=== PATIENT | female | born 1935 | race Caucasian/White ===

== ENCOUNTER 2016-11-03 10:28 | Inpatient (IN) | payer MEDICARE, BC ==
[2016-11-03] MEDS ORDERED: Sodium Chloride 0.9% 10 ML Syringe FLUSH PRN (10:55)
[2016-11-03] MEDS ORDERED: methylPREDNISolone Sodium Succinate 125 MG/2 ML SDV IVPUSH ONE (10:58)
[2016-11-03] MEDS ORDERED: Albuterol/Ipratropium 3.0-0.5 MG/3 ML Neb Soln NEB ONE ×2 (10:58→13:01)
--- NOTE | 2016-11-03 14:23 | EDM.PDOC ---
ED HPI GENERAL MEDICAL PROBLEM - General Chief Complaint: Respiratory Problem Stated Complaint: SOB Time Seen by Provider: 11/03/16 10:46 Source of Information: Reports: Patient History Limitations: Reports: No Limitations - History of Present Illness INITIAL COMMENTS - FREE TEXT/NARRATIVE: The patient presents with increased shortness of breath for a few days. 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 She denies fever, chills, or cough. She say her provider yesterday and she found her CO2 was elevated. She denies chest pain. She has no abdominal pain, nausea or vomiting. She has no edema in her legs. Onset: Gradual Duration: Day(s): Improves with: Reports: None Worsens with: Reports: Movement Associated Symptoms: Reports: Shortness of Breath. Denies: Chest Pain, Cough, Fever/Chills, Nausea/Vomiting - Related Data Allergies Allergy/AdvReac Type Severity Reaction Status Date / Time erythromycin base Allergy Other Verified 11/03/16 10:39 Home Meds: Home Meds Atenolol 50 mg PO DAILY 06/12/15 [History] Calcium Carbonate/Vitamin D3 [Caltrate-600 with Vit D Tab] 500 mg PO ASDIRECTED PRN 06/12/15 [History] Cholecalciferol (Vitamin D3) [Vitamin D3] 2,000 unit PO DAILY 06/12/15 [History] Denosumab [Prolia] 60 mg .XX ASDIRECTED 06/12/15 [History] Ezetimibe [Zetia] 10 mg PO BEDTIME 06/12/15 [History] Multivitamin [Multivitamins] 1 each PO DAILY 06/12/15 [History] Polyvinyl Alcohol/Povidone [Refresh] 1 drop EYEBOTH DAILY 06/12/15 [History] Ubidecarenone [Coenzyme Q10] 100 mg PO DAILY 06/12/15 [History] metroNIDAZOLE [Metronidazole] 45 gm TP DAILY 06/12/15 [History] Albuterol [IJD: Ventolin HFA] 2 puff INH Q4HR PRN 12/12/15 [History] Fluticasone Propionate [Flonase] 2 spray NASBOTH DAILY 12/12/15 [History] Furosemide [Lasix] 20 mg PO DAILY 12/12/15 [History] Omeprazole 20 mg PO DAILY 11/03/16 [History] Past Medical History Cardiovascular History: Reports: CAD, Heart Failure, Hypertension Respiratory History: Reports: Asthma, SOB Other Respiratory History: Wears oxygen at home at 3l/nc at all times Gastrointestinal History: Reports: GERD Musculoskeletal History: Reports: Other (See Below) Other Musculoskeletal History: scoliosis - Past Surgical History HEENT Surgical History: Reports: Tonsillectomy Social & Family History - Tobacco Use Smoking Status *Q: Never Smoker Second Hand Smoke Exposure: No - Caffeine Use Caffeine Use: Reports: None - Recreational Drug Use Recreational Drug Use: No ED ROS GENERAL - Review of Systems Review Of Systems: See Below Constitutional: Reports: No Symptoms HEENT: Reports: No Symptoms Respiratory: Reports: Shortness of Breath. Denies: Cough Cardiovascular: Reports: No Symptoms Endocrine: Reports: No Symptoms GI/Abdominal: Reports: No Symptoms : Reports: No Symptoms Musculoskeletal: Reports: No Symptoms Skin: Reports: No Symptoms ED EXAM, GENERAL - Physical Exam Exam: See Below Exam Limited By: No Limitations General Appearance: Alert, No Apparent Distress Ears: Normal External Exam Nose: Normal Inspection Head: Atraumatic, Normocephalic Neck: Normal Inspection Respiratory/Chest: No Respiratory Distress, Decreased Breath Sounds Cardiovascular: Regular Rate, Rhythm, No Edema, No Murmur GI/Abdominal: Soft, Non-Tender, No Organomegaly, No Mass Back Exam: Normal Inspection Extremities: Normal Inspection EKG INTERPRETATION EKG Date: 11/03/16 Time: 11:18 Rhythm: NSR Rate (beats/min): 77 [place]: normal P-wave: present QRS: normal ST-T: normal QT: normal EKG Interpretation Comments: LVH Course - Vital Signs Last Recorded V/S: Last Vital Signs Temp 97.4 F 11/03/16 10:33 Pulse 80 11/03/16 10:45 Resp 27 H 11/03/16 10:45 BP 157/88 H 11/03/16 10:45 Pulse Ox 98 11/03/16 13:09 - Orders/Labs/Meds Orders: Active Orders 24 hr Category Date Time Status Cardiac Monitoring [RC] . DIRECTED Care 11/03/16 10:55 Active EKG Documentation Completion [RC] STAT Care 11/03/16 10:57 Active Oxygen Therapy [RC] PRN Care 11/03/16 10:55 Active Peripheral IV Care [RC] . DIRECTED Care 11/03/16 10:58 Active RT Aerosol Therapy [RC] ASDIRECTED Care 11/03/16 10:58 Active RT Aerosol Therapy [RC] ASDIRECTED Care 11/03/16 13:01 Active Chest 1V Frontal [CR] Stat Exams 11/03/16 10:58 Taken Sodium Chloride 0.9% [Saline Flush] Med 11/03/16 10:55 Active 10 ml FLUSH ASDIRECTED PRN Peripheral IV Insertion Adult [OM.PC] Stat Oth 11/03/16 10:55 Ordered Medication Orders Sodium Chloride (Saline Flush) 10 ml FLUSH ASDIRECTED PRN PRN Reason: Keep Vein Open Last Admin: 11/03/16 11:45 Dose: 10 ml Labs: Laboratory Tests 11/03/16 11/03/16 11/03/16 Range/Units 11:30 11:30 11:30 WBC 7.20 (3.98-10.04) K/mm3 RBC 3.93 L (3.98-5.22) M/mm3 Hgb 11.9 (11.2-15.7) gm/L Hct 40.6 (34.1-44.9) % MCV 103.3 H (79.4-94.8) fl MCH 30.3 (25.6-32.2) pg MCHC 29.3 L (32.2-35.5) g/dl RDW Std Deviation 48.1 H (36.4-46.3) fL Plt Count 144 L (182-369) K/mm3 MPV 10.2 (9.4-12.3) fl Neut % (Auto) 81.4 H (34.0-71.1) % Lymph % (Auto) 9.0 L (19.3-51.7) % [place] % (Auto) 8.9 (4.7-12.5) % Eos % (Auto) 0.3 L (0.7-5.8) Baso % (Auto) 0.3 (0.1-1.2) % Neut # (Auto) 5.86 (1.56-6.13) K/mm3 Lymph # (Auto) 0.65 L (1.18-3.74) K/mm3 [place] # (Auto) 0.64 H (0.24-0.36) K/mm3 Eos # (Auto) 0.02 L (0.04-0.36) K/mm3 Baso # (Auto) 0.02 (0.01-0.08) K/mm3 Manual Slide Review Abnormal smear Sodium 142 (136-145) mEq/L Potassium 4.3 (3.5-5.1) mEq/L Chloride 99 (98-107) mEq/L Carbon Dioxide 42 H* (21-32) mEq/L Anion Gap 5.3 (5-15) BUN 30 H (7-18) mg/dL Creatinine 0.8 (0.55-1.02) mg/dL Est Cr Clr Drug Dosing 40.96 mL/min Estimated GFR (MDRD) > 60 (>60) mL/min BUN/Creatinine Ratio 37.5 H (14-18) Glucose 141 H (83-115) mg/dL Calcium 9.2 (8.5-10.1) mg/dL Total Bilirubin 0.3 (0.2-1.0) mg/dL AST 27 (15-37) U/L ALT 35 (14-59) U/L Alkaline Phosphatase 83 (46-116) U/L Troponin I < 0.017 (0.00-0.056) ng/mL B-Natriuretic Peptide 105 H (0-100) pg/mL Total Protein 7.0 (6.4-8.2) g/dl Albumin 3.4 (3.4-5.0) g/dl Globulin 3.6 gm/dL Albumin/Globulin Ratio 0.9 L (1-2) Meds: Medications Generic Name Dose Route Start Last Admin Trade Name Freq PRN Reason Stop Dose Admin Sodium Chloride 10 ml 11/03/16 10:55 11/03/16 11:45 Saline Flush FLUSH 10 ml ASDIRECTED PRN Administration Keep Vein Open Discontinued Medications Generic Name Dose Route Start Last Admin Trade Name Freq PRN Reason Stop Dose Admin Albuterol/Ipratropium 3 ml 11/03/16 10:58 11/03/16 11:25 Duoneb 3.0-0.5 Mg/3 Ml NEB 11/03/16 10:59 3 ml ONETIME ONE Administration Albuterol/Ipratropium 3 ml 11/03/16 13:01 11/03/16 13:08 Duoneb 3.0-0.5 Mg/3 Ml NEB 11/03/16 13:02 3 ml ONETIME ONE Administration Methylprednisolone Sodium Succinate 125 mg 11/03/16 10:58 11/03/16 11:45 Solu-Medrol IVPUSH 11/03/16 10:59 125 mg ONETIME ONE Administration - Re-Assessments/Exams Free Text/Narrative Re-Assessment/Exam: 11/03/16 14:21 I ordered oxygen, CXR, EKG, labs, Duoneb and solu-medrol. Her EKG shows nothing acute. Her CXR shows poor inspiration. Her CBC looks good. Her CO2 was elevated at 42. I ordered another duo neb. I feel she needs to be admitted. I called Dr Godfrey and he agreed to the admission. Departure - Departure Time of Disposition: 14:25 Disposition: Admitted As Inpatient 68 Condition: fair Clinical Impression: COPD exacerbation - Discharge Information Forms: ED Department Discharge - My Orders Last 24 Hours: My Active Orders 11/03/16 10:55 Cardiac Monitoring [RC] . DIRECTED Oxygen Therapy [RC] PRN Sodium Chloride 0.9% [Saline Flush] 10 ml FLUSH ASDIRECTED PRN Peripheral IV Insertion Adult [OM.PC] Stat 11/03/16 10:57 EKG Documentation Completion [RC] STAT 11/03/16 10:58 Peripheral IV Care [RC] . DIRECTED RT Aerosol Therapy [RC] ASDIRECTED Chest 1V Frontal [CR] Stat 11/03/16 13:01 RT Aerosol Therapy [RC] ASDIRECTED - Assessment/Plan Last 24 Hours: My Active Orders 11/03/16 10:55 Cardiac Monitoring [RC] . DIRECTED Oxygen Therapy [RC] PRN Sodium Chloride 0.9% [Saline Flush] 10 ml FLUSH ASDIRECTED PRN Peripheral IV Insertion Adult [OM.PC] Stat 11/03/16 10:57 EKG Documentation Completion [RC] STAT 11/03/16 10:58 Peripheral IV Care [RC] . DIRECTED RT Aerosol Therapy [RC] ASDIRECTED Chest 1V Frontal [CR] Stat 11/03/16 13:01 RT Aerosol Therapy [RC] ASDIRECTED
--- NOTE | 2016-11-03 15:08 | PCM.HP ---
H&P History of Present Illness - General Date of Service: 11/03/16 Admit Problem/Dx: COPD Exacerbation Source of Information: Patient, Old Records, Provider, RN Notes Reviewed History Limitations: Reports: No Limitations - History of Present Illness Initial Comments - Free Text/Narative: This is a 81 yo elderly white female with past medical hx/o HTN, CAD, ISHMAEL on CPAP, Rosacea, GERD and Severe Scoliosis who comes in with complaints of increasing shortness of breath for the past few days. She denies any associated symptoms. Patient carries a hx/o COPD and Restrictive Lung Disease. She used to follow Dr. Brandon but has not found a new rec therapist. She is on ventolin for symptomatic control. She is also on 3L NC continuously at home. Her initial work up in ED shows a CBC remarkable for RBC 3.93, Platelet 144, and Neutrophils 81.4%. Her chemistry is significant for CO2 42, BUN 30, BS 141, and BNP 105. Her CXR shows very restricted with poor inspiratory effort. Patient is being admitted for COPD Exacerbation. She is CPR only. - Related Data Allergies/Adverse Reactions: Allergies Allergy/AdvReac Type Severity Reaction Status Date / Time erythromycin base Allergy Other Verified 11/03/16 10:39 Home Medications: Home Meds Atenolol 50 mg PO BEDTIME 06/12/15 [History] Cholecalciferol (Vitamin D3) [Vitamin D3] 2,000 unit PO DAILY 06/12/15 [History] Denosumab [Prolia] 60 mg .XX ASDIRECTED 06/12/15 [History] Ezetimibe [Zetia] 10 mg PO BEDTIME 06/12/15 [History] Multivitamin [Multivitamins] 1 each PO DAILY 06/12/15 [History] Polyvinyl Alcohol/Povidone [Refresh] 1 drop EYEBOTH BID 06/12/15 [History] Ubidecarenone [Coenzyme Q10] 100 mg PO DAILY 06/12/15 [History] Albuterol [IJD: Ventolin HFA] 2 puff INH Q4HR PRN 12/12/15 [History] Fluticasone Propionate [Flonase] 2 spray NASBOTH DAILY 12/12/15 [History] Furosemide [Lasix] 20 mg PO DAILY 12/12/15 [History] Bacillus Coagulans [Digestive Advantage] 1 tab PO DAILY 11/03/16 [History] Lactase [Lactaid] 1 tab PO QID PRN 11/03/16 [History] Omeprazole 20 mg PO BIDAC 11/03/16 [History] Past Medical History Cardiovascular History: Reports: CAD, Heart Failure, Hypertension Respiratory History: Reports: Asthma, SOB Other Respiratory History: Wears oxygen at home at 3l/nc at all times Gastrointestinal History: Reports: GERD Musculoskeletal History: Reports: Other (See Below) Other Musculoskeletal History: scoliosis - Past Surgical History HEENT Surgical History: Reports: Tonsillectomy Social & Family History - Tobacco Use Smoking Status *Q: Never Smoker Second Hand Smoke Exposure: No - Caffeine Use Caffeine Use: Reports: None - Recreational Drug Use Recreational Drug Use: No H&P Review of Systems - Review of Systems: Review Of Systems: See Below General: Reports: Fatigue. Denies: Fever, Chills, Malaise, Weakness, Night Sweats, Diaphoresis HEENT: Reports: No Symptoms Pulmonary: Reports: Shortness of Breath. Denies: Wheezing, Pleuritic Chest Pain , Cough, Sputum Cardiovascular: Denies: Chest Pain, Palpitations, Dyspnea on Exertion Gastrointestinal: Denies: Abdominal Pain, Melena, Nausea Genitourinary: Reports: No Symptoms Musculoskeletal: Reports: No Symptoms Skin: Reports: Cyanosis (hands), Change in Color. Denies: Pallor, Dryness, Bruising, Rash, Erythema, Wound Psychiatric: Denies: Confusion, Depression, Anxiety, Agitation, Homicidal Ideation Neurological: Reports: Gait Disturbance. Denies: Confusion, Weakness Hematologic/Lymphatic: Reports: No Symptoms Immunologic: Reports: No Symptoms Exam - Exam Exam: See Below - Vital Signs Vital Signs: Last Vital Signs Temp 36.3 C 11/03/16 10:33 Pulse 80 11/03/16 10:45 Resp 27 H 11/03/16 10:45 BP 157/88 H 11/03/16 10:45 Pulse Ox 98 11/03/16 13:09 Weight: 58.967 kg - Exam Quality Assessment: Supplemental Oxygen General: Alert, Oriented, Cooperative, Other (short stature). No: Mild Distress HEENT: Conjunctiva Clear, EACs Clear, EOMI, Hearing Intact, Mucosa Moist & [place] , Nares Patent, Normal Nasal Septum, Posterior Pharynx Clear, Pupils Equal, Pupils Reactive Neck: Supple, Trachea Midline (she has no visible neck), Other (no visible neck , no accessory muscle use) Lungs: Normal Respiratory Effort, Decreased Breath Sounds Cardiovascular: Regular Rate, Regular Rhythm Abdomen: Normal Bowel Sounds, Soft. No: Organomegaly, Tenderness (Female) Exam: Deferred Rectal (Female) Exam: Deferred Back Exam: Other (Severe Scoliosis, Right shoulder is higher than Left). No: Normal Inspection, Full Range of Motion Extremities: Normal Pulses, Edema (left ankle), Other (hands a [place]obhan cyanotic and cold (normal to her per patient)) Peripheral Pulses: 2+: Dorsalis Pedis (L), Dorsalis Pedis (R) Skin: Warm, Dry, Intact Neuro Extensive - Mental Status: Oriented x3, Normal Cognition, Memory Intact Neuro Extensive - Motor, Sensory, Reflexes: CN II-XII Intact, Abnormal Gait Psychiatric: Alert, Normal Affect, Normal Mood - Patient Data Result Diagrams: 11/03/16 11:30 11/03/16 11:30 EKG INTERPRETATION EKG Date: 11/03/16 Time: 11:18 Rhythm: NSR Rate (beats/min): 77 [place]: normal P-wave: present QRS: normal ST-T: normal QT: normal *Q Meaningful Use (ADM) - VTE *Q VTE Criteria *Q: - Stroke *Q Stroke Criteria *Q: - AMI *Q AMI Criteria *Q: Problem List Initiated/Reviewed/Updated: Yes Orders Last 24hrs: Medication Orders Sodium Chloride (Saline Flush) 10 ml FLUSH ASDIRECTED PRN PRN Reason: Keep Vein Open Last Admin: 11/03/16 11:45 Dose: 10 ml Assessment/Plan Comment:: Assessment/Plan: Acute: Acute on Chronic Respiratory Failure - Risk Factors: Restrictive Lung Disease, COPD, Advanced Scoliosis and ISHMAEL - On 3L NC continuously for home use - Continue Supplemental O2 COPD Exacerbation - 2/2 Restrictive Lung Disease from Severe and likely Worsening Scoliosis - Supplemental O2, IV Solumedrol, Bronchodilators, RT care, oral Magnesium BID Acute vs Chronic CO2 Retainer - 2/2 above - Continue supplemental O2 - Has NIPPV, may convert to BIPAP if needed - Monitor CO2 level Severe Scoliosis - Likely worsening - She was seen in [facility] before but was not offered any kind of intervention likely because of her advanced age and co-morbidities - Informed patient, she may need to be re-evaluated with declining functional status Chronic: HTN ISHMAEL on CPAP COPD/Asthma GERD Peripheral Edema Vit D Deficiency Osteoporosis Hx/o CAD/HLD Hx/o HF with unknown EF (likely Diastolic) Hx/o Tachycardia Plan: Admit to Med-Surg w/ Pulse ox Resume Home Meds except albuterol Routine AM Labs Start Xopenex instead of Albuterol PT/OT/RT consult SW/CM for d/c planning Code status: CPR only
[2016-11-03] MEDS ORDERED: Promethazine 12.5 MG in Sodium Chloride 0.9% 50 ML IV PRN (16:35)
[2016-11-03] MEDS ORDERED: Polyethylene Glycol 3350 Powder 17 GM Packet PO PRN (16:35)
[2016-11-03] MEDS ORDERED: Bisacodyl 5 MG Tab PO PRN (16:35)
[2016-11-03] MEDS ORDERED: Ondansetron 4 MG/2 ML SDV IV PRN (16:35)
[2016-11-03] MEDS ORDERED: Temazepam 7.5 MG Cap PO PRN (16:35)
[2016-11-03] MEDS ORDERED: Acetaminophen 325 MG Tab PO PRN (16:35)
[2016-11-03] MEDS ORDERED: Acetaminophen/HYDROcodone 325-5 MG Tab PO PRN (16:35)
[2016-11-03] MEDS: Magnesium Oxide 400 MG Tab PO SCH (20:39)
[2016-11-03] MEDS: Hypromellose 0.5% Ophth Soln 15 ML Bottle EYEBOTH SCH (20:39)
[2016-11-03] MEDS: methylPREDNISolone Sodium Succinate 125 MG/2 ML SDV IVPUSH SCH (20:39)
[2016-11-03] MEDS: Ezetimibe 10 MG Tab PO SCH (20:39)
[2016-11-03] MEDS: Levalbuterol HCl 1.25 MG/3 ML Neb NEB PRN (20:48)
[2016-11-03] MEDS ORDERED: Atenolol 25 MG Tab PO SCH (21:00)
[2016-11-03] MEDS ORDERED: Furosemide 20 MG/2 ML VIAL IVPUSH ONE (21:08)
[2016-11-03] MEDS ORDERED: Morphine 2 MG/ML Syringe IVPUSH ONE (21:09)
[2016-11-03] MEDS: hydrALAZINE 20 MG/ML SDV IVPUSH PRN (21:47)
[2016-11-04] MEDS: Levalbuterol HCl 1.25 MG/3 ML Neb NEB PRN ×4 (02:14→21:34)
--- NOTE | 2016-11-04 05:08 | PCM.PN ---
- General Info Date of Service: 11/04/16 Admission Dx/Problem (Free Text): COPD Exacerbation Subjective Update: Follow Up Functional Status: Reports: pain controlled, tolerating diet, ambulating, urinating - Review of Systems General: Reports: Fatigue. Denies: Fever, Chills HEENT: Reports: no symptoms Pulmonary: Reports: shortness of breath Cardiovascular: Reports: Dyspnea on Exertion. Denies: Chest Pain, Palpitations , Edema Gastrointestinal: Denies: Abdominal pain, Nausea, Vomiting Genitourinary: Reports: no symptoms Musculoskeletal: Reports: no symptoms Neurological: Denies: Confusion, Difficulty Walking, Weakness, Gait Disturbance Psychiatric: Denies: depression, anxiety, agitation, cravings Systems Review Comment:: She did not sleep well overnight. She refused low dose ativan and morphine last night. Her breathing is about the same but no worse than her baseline. She remains at 3L NC. Her CO2 is now at 38 from 40. - Patient Data Vitals - most recent: Last Vital Signs Temp 37.1 C 11/03/16 23:10 Pulse 86 11/03/16 23:10 Resp 20 11/03/16 23:10 BP 127/64 11/03/16 23:10 Pulse Ox 95 11/03/16 23:10 Weight - most recent: 58.967 kg Med Orders - Current: Current Medications Acetaminophen (Tylenol) 650 mg PO Q4H PRN PRN Reason: Pain (Mild 1-3)/fever Hydrocodone Bitart/Acetaminophen ([place] 325-5 Mg) 1 tab PO Q4H PRN PRN Reason: Pain (moderate 4-6) Artificial Tears (Isopto Tears 0.5% Ophth Soln) 0 ml EYEBOTH BID [facility] Last Admin: 11/03/16 20:39 Dose: 1 drop Atenolol (Tenormin) 50 mg PO BEDTIME [facility] Last Admin: 11/03/16 20:39 Dose: 50 mg Bisacodyl (Dulcolax) 5 mg PO DAILY PRN PRN Reason: Constipation Cholecalciferol (Vitamin D3) 2,000 units PO DAILY [facility] Denosumab (Prolia) 60 mg .XX ASDIRECTED [facility] Ezetimibe (Zetia) 10 mg PO BEDTIME [facility] Last Admin: 11/03/16 20:39 Dose: 10 mg Enoxaparin Sodium (Lovenox) 30 mg SUBCUT DAILY [facility] Flunisolide (Nasalide Nasal [place]) 0 ml ESTEBAN Q12H [facility] Furosemide (Lasix) 20 mg PO DAILY [facility] Hydralazine HCl (Apresoline) 20 mg IVPUSH Q4H PRN PRN Reason: Hypertension Last Admin: 11/03/16 21:47 Dose: 20 mg Promethazine HCl 12.5 mg/ (Sodium Chloride) 50.5 mls @ 100 mls/hr IV Q6H PRN PRN Reason: Nausea/Vomiting Lactase (Lactaid Fast Act) 9,000 unit PO QID PRN PRN Reason: LACTOSE INTOLERANCE Levalbuterol HCl (Xopenex) 1.25 mg NEB Q4H PRN PRN Reason: SOB/WHEEZING Last Admin: 11/04/16 02:14 Dose: 1.25 mg Lorazepam (Ativan) 0.5 mg IV Q6H PRN PRN Reason: Anxiety Magnesium Oxide (Magnesium Oxide) 400 mg PO BID [facility] Last Admin: 11/03/16 20:39 Dose: 400 mg Methylprednisolone Sodium Succinate (Solu-Medrol) 125 mg IVPUSH Q12H [facility] Last Admin: 11/03/16 20:39 Dose: 125 mg Multivitamins (Thera) 1 each PO DAILY [facility] Non-Formulary Medication (Ubidecarenone) 100 mg PO DAILY [facility] Non-Formulary Medication (Bacillus Coagulans [Digestive Advantage]) 1 tab PO DAILY [facility] Ondansetron HCl (Zofran) 4 mg IV Q6H PRN PRN Reason: Nausea/Vomiting Pantoprazole Sodium (Protonix) 40 mg PO DAILY@0700 [facility] Polyethylene Glycol (Miralax) 17 gm PO DAILY PRN PRN Reason: Constipation Senna/Docusate Sodium (Senna Plus) 1 tab PO BID PRN PRN Reason: Constipation Sodium Chloride (Saline Flush) 10 ml FLUSH ASDIRECTED PRN PRN Reason: Keep Vein Open Last Admin: 11/03/16 11:45 Dose: 10 ml Temazepam (Restoril) 7.5 mg PO BEDTIME PRN PRN Reason: Sleep Discontinued Medications Albuterol/Ipratropium (Duoneb 3.0-0.5 Mg/3 Ml) 3 ml NEB ONETIME ONE Stop: 11/03/16 10:59 Last Admin: 11/03/16 11:25 Dose: 3 ml Albuterol/Ipratropium (Duoneb 3.0-0.5 Mg/3 Ml) 3 ml NEB ONETIME ONE Stop: 11/03/16 13:02 Last Admin: 11/03/16 13:08 Dose: 3 ml Furosemide (Lasix) 10 mg IVPUSH NOW ONE Stop: 11/03/16 21:09 Last Admin: 11/03/16 21:54 Dose: Not Given Methylprednisolone Sodium Succinate (Solu-Medrol) 125 mg IVPUSH ONETIME ONE Stop: 11/03/16 10:59 Last Admin: 11/03/16 11:45 Dose: 125 mg Morphine Sulfate (Morphine) 0.5 mg IVPUSH ONETIME ONE Stop: 11/03/16 21:10 Last Admin: 11/03/16 23:33 Dose: Not Given - Exam Quality Assessment: supplemental oxygen General: alert, oriented, cooperative, no acute distress, other (short stature) HEENT: Pupils equal, Pupils reactive, EOMI, Mucous membr. moist/pink Neck: supple, trachea midline, no JVD, no thyromegaly, other (neck is short and non-visible) Lungs: Clear to auscultation, Normal respiratory effort, Decreased breath sounds Cardiovascular: Regular Rate, Regular Rhythm, Other (prominent anterior chest ) Abdomen: bowel sounds present, soft, no tenderness, no distension (Female) Exam: Deferred Back Exam: Normal Inspection, Decreased Range of Motion, Other (Asymmetric shoulder. Her body is malrotated.) Extremities: normal pulses, no tenderness/swelling, no clubbing, no cyanosis, no calf tenderness, edema (left ankle but better), other (cyanotic hands) Peripheral Pulses: 2+: Dorsalis Pedis (L), Dorsalis Pedis (R) Skin: warm, dry, intact Neurological: no new focal deficit Psy/Mental Status: alert, normal affect, normal mood - Problem List Review Problem List Initiated/Reviewed/Updated: Yes - My Orders Last 24 Hours: My Active Orders 11/03/16 16:35 Height and Weight [RC] 04 Oxygen Therapy [RC] PRN Up With Assistance [RC] ASDIRECTED Up ad Fay [RC] ASDIRECTED VTE/DVT Education [RC] DAILY Vital Signs [RC] Q4HR Consult to Case Management [CONS] Routine Consult to Marketing Intern [CONS] Routine Consult to Spiritual Care [CONS] Routine Respiratory Care Assess and Treatment [CONS] Routine Acetaminophen [Tylenol] 650 mg PO Q4H PRN Acetaminophen/HYDROcodone [[place] 325-5 MG] 1 tab PO Q4H PRN Bisacodyl [Dulcolax] 5 mg PO DAILY PRN Docusate Sodium/Sennosides [Senna Plus] 1 tab PO BID PRN LORazepam [Ativan] 0.5 mg IV Q6H PRN Ondansetron [Zofran] 4 mg IV Q6H PRN Polyethylene Glycol 3350 [MiraLAX] 17 gm PO DAILY PRN Promethazine [Phenergan] 12.5 mg Sodium Chloride 0.9% [Normal Saline] 50 ml IV Q6H Temazepam [Restoril] 7.5 mg PO BEDTIME PRN Resuscitation Status Routine 11/03/16 16:36 Intake and Output [RC] 04,16 11/03/16 16:38 OT Evaluation and Treatment [CONS] Routine PT Evaluation and Treatment [CONS] Routine 11/03/16 16:45 Denosumab [Prolia] 60 mg .XX ASDIRECTED 11/03/16 17:09 Levalbuterol HCl [Xopenex] 1.25 mg NEB Q4H PRN 11/03/16 20:00 Lactase [Lactaid Fast Act] 9,000 unit PO QID PRN 11/03/16 21:00 Atenolol [Tenormin] 50 mg PO BEDTIME Ezetimibe [Zetia] 10 mg PO BEDTIME Hypromellose [Isopto Tears 0.5% Ophth Soln] 0 ml EYEBOTH BID Magnesium Oxide 400 mg PO BID methylPREDNISolone Sod Succ [Solu-MEDROL] 125 mg IVPUSH Q12H 11/03/16 21:06 hydrALAZINE [Apresoline] 20 mg IVPUSH Q4H PRN 11/03/16 Dinner Regular Diet [DIET] 11/04/16 05:11 BASIC METABOLIC PANEL,BMP [CHEM] AM CBC WITH AUTO DIFF [HEME] AM MAGNESIUM [CHEM] AM 11/04/16 07:00 Pantoprazole [ProTONIX] 40 mg PO DAILY@0700 11/04/16 09:00 Bacillus Coagulans [Digestive Advantage] 1 tab PO DAILY Cholecalciferol (Vitamin D3) [Vitamin D3] 2,000 units PO DAILY Enoxaparin [Lovenox] 30 mg SUBCUT DAILY Flunisolide [Nasalide Nasal Brun[place]] 0 ml ESTEABN Q12H Furosemide [Lasix] 20 mg PO DAILY Multivitamins,Therapeutic [Thera] 1 each PO DAILY Ubidecarenone 100 mg PO DAILY 11/05/16 05:11 BASIC METABOLIC PANEL,BMP [CHEM] AM CBC WITH AUTO DIFF [HEME] AM MAGNESIUM [CHEM] AM - Plan Plan:: Assessment/Plan: Acute: Chronic Respiratory Failure - Risk Factors: Restrictive Lung Disease, COPD, Advanced Scoliosis and ISHMAEL - On 3L NC continuously for home use - Continue Supplemental O2 COPD Exacerbation, Improved - 2/2 Restrictive Lung Disease from Severe and likely Worsening Scoliosis - Supplemental O2, IV Solumedrol, Bronchodilators, RT care, oral Magnesium BID Acute vs Chronic CO2 Retainer, Improved - 2/2 above - CO2 40 ---> 38 - Continue supplemental O2 and NIPPV - Monitor CO2 level Severe Scoliosis - Likely worsening - Patient was seen in [facility] 10-15 years ago for evaluation of her Scoliosis. At that time, she was offered no alternative option. She is currently being followed by oil tank car cleaner but she has not been referred to a surgical garment inspector that could help her surgically. - Patient is aware we do not have a whole lot to offer here in [place]. At the same time, she would not meet transfer criteria as she is not any worse than here baseline. She was offered ativan and morphine last night but refused it. - Informed patient, she may need to be re-evaluated with declining functional status. Chronic: HTN ISHMAEL on NIPPV COPD/Asthma Severe Scoliosis GERD Peripheral Edema Vit D Deficiency Osteoporosis Hx/o CAD/HLD Hx/o HF with unknown EF (likely Diastolic) Hx/o Tachycardia Plan: She is essentially the same Continue current treatment Routine AM Labs Continue PT/OT/RT SW/CM for d/c planning Code status: CPR only Poor prognosis with worsening scoliosis affecting her respiratory status
[2016-11-04] MEDS: Pantoprazole 40 MG Tab.CR PO SCH (06:19)
[2016-11-04] MEDS: Furosemide 20 MG Tab PO SCH (09:05)
[2016-11-04] MEDS: Enoxaparin 40 MG/0.4 ML Syringe SUBCUT SCH (09:05)
[2016-11-04] MEDS: Saccharomyces Boulardii (Probiotic) 250 MG Cap PO SCH (09:05)
[2016-11-04] MEDS: Hypromellose 0.5% Ophth Soln 15 ML Bottle EYEBOTH SCH ×2 (09:05→21:56)
[2016-11-04] MEDS: Cholecalciferol (Vitamin D3) 1,000 Unit Tab PO SCH (09:06)
[2016-11-04] MEDS: Magnesium Oxide 400 MG Tab PO SCH ×2 (09:06→21:55)
[2016-11-04] MEDS: Multivitamins,Therapeutic Tab PO SCH (09:06)
[2016-11-04] MEDS: LORazepam 2 MG/ML MDV IV PRN ×2 (09:06→23:39)
[2016-11-04] MEDS: methylPREDNISolone Sodium Succinate 125 MG/2 ML SDV IVPUSH SCH ×2 (09:06→21:56)
--- NOTE | 2016-11-04 09:25 | CR ---
Chest: Frontal view of the chest was obtained. Comparison: No previous chest x-ray, previous chest CT of 12/04/15. Severe scoliosis is noted. This limits evaluation of the chest. Lungs are grossly clear. Heart size appears to be within normal limits. Impression: 1. Scoliosis limits evaluation of the chest. Nothing acute is definitely seen. Diagnostic code #2
[2016-11-04] MEDS: hydrALAZINE 20 MG/ML SDV IVPUSH PRN (12:03)
[2016-11-04] MEDS ORDERED: Morphine 2 MG/ML Syringe IVPUSH ONE (13:42)
[2016-11-04] MEDS: Lactase 9,000 Unit Tab PO PRN (14:33)
[2016-11-04] MEDS: Ezetimibe 10 MG Tab PO SCH (21:55)
[2016-11-04] MEDS: Atenolol 25 MG Tab PO SCH (21:58)
[2016-11-04] MEDS: Morphine 2 MG/ML Syringe IVPUSH PRN (22:02)
[2016-11-05] MEDS: Pantoprazole 40 MG Tab.CR PO SCH (06:11)
[2016-11-05] MEDS: Levalbuterol HCl 1.25 MG/3 ML Neb NEB PRN ×4 (06:16→20:48)
[2016-11-05] MEDS: Saccharomyces Boulardii (Probiotic) 250 MG Cap PO SCH (10:09)
[2016-11-05] MEDS: Atenolol 25 MG Tab PO SCH ×2 (10:10→21:39)
[2016-11-05] MEDS: Cholecalciferol (Vitamin D3) 1,000 Unit Tab PO SCH (10:10)
[2016-11-05] MEDS: Multivitamins,Therapeutic Tab PO SCH (10:10)
--- NOTE | 2016-11-05 10:12 | PCM.PN ---
- General Info Date of Service: 11/05/16 Admission Dx/Problem (Free Text): COPD Exacerbation Subjective Update: Follow Up Functional Status: Reports: pain controlled, tolerating diet, ambulating, urinating. Denies: new symptoms - Review of Systems General: Denies: Fever, Fatigue, Chills HEENT: Reports: no symptoms Pulmonary: Reports: shortness of breath Cardiovascular: Denies: Chest Pain, Palpitations, Dyspnea on Exertion Gastrointestinal: Denies: Abdominal pain, Nausea, Vomiting Genitourinary: Denies: no symptoms Musculoskeletal: Denies: no symptoms Skin: Reports: cyanosis Neurological: Denies: Confusion, Difficulty Walking, Gait Disturbance Psychiatric: Denies: depression, anxiety, agitation, hallucinations Systems Review Comment:: No overnight issues. She took the low dose ativan and morphine last night. She feels better this am. She has no new complaints. - Patient Data Vitals - most recent: Last Vital Signs Temp 36.1 C 11/05/16 06:17 Pulse 83 11/05/16 06:17 Resp 24 H 11/05/16 06:17 BP 118/93 H 11/05/16 06:17 Pulse Ox 95 11/05/16 06:19 Weight - most recent: 60.691 kg I&O - last 24 hours: Intake & Output 11/04/16 11/05/16 11/05/16 22:59 06:59 14:59 Intake Total 1250 400 Output Total 400 500 Balance 850 -100 Lab Results last 24 hrs: Laboratory Results - last 24 hr 11/05/16 11/05/16 Range/Units 06:35 06:35 WBC 12.95 H (3.98-10.04) K/mm3 RBC 4.41 (3.98-5.22) M/mm3 Hgb 13.5 (11.2-15.7) gm/L Hct 45.0 H (34.1-44.9) % MCV 102.0 H (79.4-94.8) fl MCH 30.6 (25.6-32.2) pg MCHC 30.0 L (32.2-35.5) g/dl RDW Std Deviation 51.0 H (36.4-46.3) fL Plt Count 176 L (182-369) K/mm3 MPV 10.1 (9.4-12.3) fl Neut % (Auto) 93.9 H (34.0-71.1) % Lymph % (Auto) 4.4 L (19.3-51.7) % [place] % (Auto) 1.5 L (4.7-12.5) % Eos % (Auto) 0 L (0.7-5.8) Baso % (Auto) 0.0 L (0.1-1.2) % Neut # (Auto) 12.16 H (1.56-6.13) K/mm3 Lymph # (Auto) 0.57 L (1.18-3.74) K/mm3 [place] # (Auto) 0.20 L (0.24-0.36) K/mm3 Eos # (Auto) 0.00 L (0.04-0.36) K/mm3 Baso # (Auto) 0.00 L (0.01-0.08) K/mm3 Manual Slide Review Abnormal smear Sodium 138 (136-145) mEq/L Potassium 4.5 (3.5-5.1) mEq/L Chloride 97 L (98-107) mEq/L Carbon Dioxide 40 H (21-32) mEq/L Anion Gap 5.5 (5-15) BUN 53 H (7-18) mg/dL Creatinine 0.9 (0.55-1.02) mg/dL Est Cr Clr Drug Dosing 36.41 mL/min Estimated GFR (MDRD) > 60 (>60) mL/min BUN/Creatinine Ratio 58.9 H (14-18) Glucose 160 H (83-115) mg/dL Calcium 9.6 (8.5-10.1) mg/dL Magnesium 2.6 H (1.8-2.4) mg/dl Med Orders - Current: Current Medications Acetaminophen (Tylenol) 650 mg PO Q4H PRN PRN Reason: Pain (Mild 1-3)/fever Hydrocodone Bitart/Acetaminophen ([place] 325-5 Mg) 1 tab PO Q4H PRN PRN Reason: Pain (moderate 4-6) Artificial Tears (Isopto Tears 0.5% Ophth Soln) 0 ml EYEBOTH BID [facility] Last Admin: 11/04/16 21:56 Dose: 1 drop Atenolol (Tenormin) 50 mg PO BID [facility] Last Admin: 11/04/16 21:58 Dose: 50 mg Bisacodyl (Dulcolax) 5 mg PO DAILY PRN PRN Reason: Constipation Cholecalciferol (Vitamin D3) 2,000 units PO DAILY [facility] Last Admin: 11/04/16 09:06 Dose: 2,000 units Ezetimibe (Zetia) 10 mg PO BEDTIME [facility] Last Admin: 11/04/16 21:55 Dose: 10 mg Enoxaparin Sodium (Lovenox) 40 mg SUBCUT DAILY [facility] Last Admin: 11/04/16 09:05 Dose: 40 mg Flunisolide (Nasalide Nasal [place]) 0 ml ESTEBAN Q12H [facility] Last Admin: 11/04/16 22:22 Dose: Not Given Furosemide (Lasix) 20 mg PO DAILY [facility] Last Admin: 11/04/16 09:05 Dose: 20 mg Hydralazine HCl (Apresoline) 20 mg IVPUSH Q4H PRN PRN Reason: Hypertension Last Admin: 11/04/16 12:03 Dose: 20 mg Promethazine HCl 12.5 mg/ (Sodium Chloride) 50.5 mls @ 100 mls/hr IV Q6H PRN PRN Reason: Nausea/Vomiting Lactase (Lactaid Fast Act) 9,000 unit PO QID PRN PRN Reason: LACTOSE INTOLERANCE Last Admin: 11/04/16 14:33 Dose: 9,000 unit Levalbuterol HCl (Xopenex) 1.25 mg NEB Q4H PRN PRN Reason: SOB/WHEEZING Last Admin: 11/05/16 06:16 Dose: 1.25 mg Lorazepam (Ativan) 0.5 mg IV Q6H PRN PRN Reason: Anxiety Last Admin: 11/04/16 23:39 Dose: 0.5 mg Magnesium Oxide (Magnesium Oxide) 400 mg PO BID [facility] Last Admin: 11/04/16 21:55 Dose: 400 mg Methylprednisolone Sodium Succinate (Solu-Medrol) 125 mg IVPUSH Q12H [facility] Last Admin: 11/04/16 21:56 Dose: 125 mg Morphine Sulfate (Morphine) 0.25 mg IVPUSH Q6H PRN PRN Reason: Dyspnea Last Admin: 11/04/16 22:02 Dose: 0.25 mg Multivitamins (Thera) 1 each PO DAILY [facility] Last Admin: 11/04/16 09:06 Dose: 1 each Ondansetron HCl (Zofran) 4 mg IV Q6H PRN PRN Reason: Nausea/Vomiting Pantoprazole Sodium (Protonix) 40 mg PO DAILY@0700 [facility] Last Admin: 11/05/16 06:11 Dose: 40 mg Ubidecarenone 100 Mg 0 each PO DAILY [facility] Last Admin: 11/04/16 09:06 Dose: Not Given Denosumab 60 Mg/1 Ml (Syringe (Prolia)) 60 each SUBCUT ASDIRECTED PRN PRN Reason: NEXT DOSE DUE IN JUN Polyethylene Glycol (Miralax) 17 gm PO DAILY PRN PRN Reason: Constipation Saccharomyces Boulardii (Florastor) 250 mg PO DAILY [facility] Last Admin: 11/04/16 09:05 Dose: 250 mg Senna/Docusate Sodium (Senna Plus) 1 tab PO BID PRN PRN Reason: Constipation Sodium Chloride (Saline Flush) 10 ml FLUSH ASDIRECTED PRN PRN Reason: Keep Vein Open Last Admin: 11/03/16 11:45 Dose: 10 ml Temazepam (Restoril) 7.5 mg PO BEDTIME PRN PRN Reason: Sleep Discontinued Medications Albuterol/Ipratropium (Duoneb 3.0-0.5 Mg/3 Ml) 3 ml NEB ONETIME ONE Stop: 11/03/16 10:59 Last Admin: 11/03/16 11:25 Dose: 3 ml Albuterol/Ipratropium (Duoneb 3.0-0.5 Mg/3 Ml) 3 ml NEB ONETIME ONE Stop: 11/03/16 13:02 Last Admin: 11/03/16 13:08 Dose: 3 ml Atenolol (Tenormin) 50 mg PO BEDTIME [facility] Last Admin: 11/03/16 20:39 Dose: 50 mg Furosemide (Lasix) 10 mg IVPUSH NOW ONE Stop: 11/03/16 21:09 Last Admin: 11/03/16 21:54 Dose: Not Given Methylprednisolone Sodium Succinate (Solu-Medrol) 125 mg IVPUSH ONETIME ONE Stop: 11/03/16 10:59 Last Admin: 11/03/16 11:45 Dose: 125 mg Morphine Sulfate (Morphine) 0.5 mg IVPUSH ONETIME ONE Stop: 11/03/16 21:10 Last Admin: 11/03/16 23:33 Dose: Not Given Morphine Sulfate (Morphine) 0.25 mg IVPUSH ONETIME ONE Stop: 11/04/16 13:43 Last Admin: 11/04/16 13:59 Dose: Not Given - Exam Quality Assessment: supplemental oxygen General: alert, oriented, cooperative, no acute distress, other (short stature) HEENT: Pupils equal, Pupils reactive, EOMI, Mucous membr. moist/pink Neck: supple, trachea midline, no JVD, no thyromegaly Lungs: Clear to auscultation, Normal respiratory effort, Decreased breath sounds Cardiovascular: Regular Rate, Regular Rhythm Abdomen: bowel sounds present, soft, no tenderness, no distension (Female) Exam: Deferred Back Exam: Normal Inspection, Decreased Range of Motion Extremities: normal pulses, no tenderness/swelling, no clubbing, no calf tenderness, edema Peripheral Pulses: 2+: Dorsalis Pedis (L), Dorsalis Pedis (R) Skin: warm, dry, intact Neurological: no new focal deficit Psy/Mental Status: alert, normal affect, normal mood - Problem List Review Problem List Initiated/Reviewed/Updated: Yes - My Orders Last 24 Hours: My Active Orders 11/04/16 09:00 Cholecalciferol (Vitamin D3) [Vitamin D3] 2,000 units PO DAILY Enoxaparin [Lovenox] 40 mg SUBCUT DAILY Flunisolide [Nasalide Nasal [place]] 0 ml ESTEBAN Q12H Furosemide [Lasix] 20 mg PO DAILY Multivitamins,Therapeutic [Thera] 1 each PO DAILY Patient's Own Medication [Ptom] 0 each PO DAILY Saccharomyces Boulardii [Florastor] 250 mg PO DAILY 11/04/16 15:29 Morphine 0.25 mg IVPUSH Q6H PRN 11/04/16 21:00 Atenolol [Tenormin] 50 mg PO BID - Plan Plan:: Assessment/Plan: Acute: Chronic Respiratory Failure - Risk Factors: Restrictive Lung Disease, COPD, Advanced Scoliosis and ISHMAEL - On 3L NC continuously for home use - Continue Supplemental O2 COPD - 2/2 Restrictive Lung Disease from Severe and likely Worsening Scoliosis - Supplemental O2, Bronchodilators, RT care, oral Magnesium BID - Discontinue oral Magnesium Chronic CO2 Retainer, Improved - 2/2 above - CO2 40 ---> 38 ---> 40 (her supplemental O2 was cut down to 2L) - Continue supplemental O2 and NIPPV Leukocytosis - 2/2 IV Steroid - Will stop steroid Hypermagnesemia - Mg 2.6 - Discontinue oral Magnesium Oxide Severe Scoliosis - Likely worsening - Patient was seen in [facility] 10-15 years ago for evaluation of her Scoliosis. At that time, she was offered no alternative option. She is currently being followed by manager financial services but she has not been referred to a regional vice president surgical sales that could help her surgically. - Patient is aware we do not have a whole lot to offer here in [place]. At the same time, she would not meet transfer criteria as she is not any worse than here baseline. She was offered ativan and morphine last night but this time she agreed to take it. - Informed patient, she may need to be re-evaluated with declining functional status. Chronic: HTN ISHMALE on NIPPV COPD/Asthma Severe Scoliosis GERD Peripheral Edema Vit D Deficiency Osteoporosis Hx/o CAD/HLD Hx/o HF with unknown EF (likely Diastolic) Hx/o Tachycardia Plan: She is essentially the same Continue current treatment Routine AM Labs Continue PT/OT/RT SW/CM for d/c planning Encourage to use PRN ativan and morphine for symptomatic control Code status: CPR only Possible d/c in am Poor prognosis with worsening scoliosis affecting her respiratory status
[2016-11-05] MEDS: Enoxaparin 40 MG/0.4 ML Syringe SUBCUT SCH (10:13)
[2016-11-05] MEDS: Furosemide 20 MG Tab PO SCH (10:13)
[2016-11-05] MEDS: Hypromellose 0.5% Ophth Soln 15 ML Bottle EYEBOTH SCH ×2 (10:14→21:38)
[2016-11-05] MEDS: methylPREDNISolone Sodium Succinate 125 MG/2 ML SDV IVPUSH SCH (10:56)
[2016-11-05] MEDS: Magnesium Oxide 400 MG Tab PO SCH (10:56)
[2016-11-05] MEDS: Ezetimibe 10 MG Tab PO SCH (21:39)
[2016-11-05] MEDS: Morphine 2 MG/ML Syringe IVPUSH PRN (22:02)
[2016-11-05] MEDS: LORazepam 2 MG/ML MDV IV PRN (22:03)
[2016-11-06] MEDS: Levalbuterol HCl 1.25 MG/3 ML Neb NEB PRN ×3 (04:33→15:31)
[2016-11-06] MEDS: Pantoprazole 40 MG Tab.CR PO SCH (06:59)
--- NOTE | 2016-11-06 07:00 | PCM.DCSUM1 ---
Discharge Summary - Hospital Course Brief History: This is a 81 yo elderly white female with past medical hx/o HTN, CAD, ISHMAEL on CPAP, Restrictive Lung Disease. Rosacea, GERD and Severe Scoliosis who comes in with complaints of increasing shortness of breath for the past few days and was admitted for COPD Exacerbation and Respiratory Failure. - Discharge Data Discharge Date: 11/06/16 Discharge Disposition: Home, Self-Care 01 Condition: - Discharge Diagnosis/Problem(s) (1) Respiratory failure with hypercapnia SNOMED Code(s): 224263551 ICD Code: J96.92 - RESPIRATORY FAILURE, UNSPECIFIED WITH HYPERCAPNIA Status : Acute Current Visit: Yes (2) Scoliosis deformity of spine SNOMED Code(s): 148308221 ICD Code: M41.9 - SCOLIOSIS, UNSPECIFIED Status: Chronic Current Visit: Yes Qualifiers: Scoliosis type: unspecified scoliosis Spinal region: cervicothoracic Qualified Code(s): M41.9 - Scoliosis, unspecified (3) History of chronic carbon dioxide retention SNOMED Code(s): 101613756 ICD Code: [id number] - Status: Acute Current Visit: Yes (4) COPD exacerbation SNOMED Code(s): 255685674, 001670066 ICD Code: J44.1 - CHRONIC OBSTRUCTIVE PULMONARY DISEASE W (ACUTE) EXACERBATION Status: Acute Current Visit: Yes (5) ISHMAEL treated with BiPAP SNOMED Code(s): 90426334 ICD Code: G47.33 - OBSTRUCTIVE SLEEP APNEA (ADULT) (PEDIATRIC) Status: Chronic Current Visit: Yes - Patient Summary/Data Operative Procedure(s) Performed: None Complications: Consults: Consultations 11/03/16 16:35 Consult to Case Management [CONS] Routine Consult to Fusing Machine Feeder [CONS] Routine Consult to Spiritual Care [CONS] Routine Respiratory Care Assess and Treatment [CONS] Routine 11/03/16 16:38 OT Evaluation and Treatment [CONS] Routine PT Evaluation and Treatment [CONS] Routine Hospital Course: Patient was primarily admitted for COPD exacerbation and acute respiratory failure. 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 According to her sister, for the past several months she had been progressively declining particularly with difficulty breathing. Patient was seen in [facility] 10-15 years but she was offered no treatment to improve her worsening respiratory status. On this admission, the patient and her sister understood we are very limited with resources here and that shipping her out to [place] for upper level of care would unlikely improve her overall care. Patient also understood her prognosis was very poor with worsening kyphoscoliosis. During her short stay, she was provided appropriate respiratory care but she minimally improved. At the beginning, we offered comfort measures but she was not amenable to it. This morning, she was found in severe hypoxia with O2 sat in the 60s. Her ABG showed severe acidosis with CO2 level almost 100 requiring urgent intubation. At that time, she started to decompensate so her sisters were contacted to come here at immediately. Once her sisters (Divya and Maggie ) made it here, they spoke with patient. About after the patient had her last rites administered, her family then decided she be comfortable. At about 1853 patient with family at bedside. Her body was released to [facility] for processing. - Patient Instructions Other/Special Instructions: Patient - Discharge Plan Patient Handouts: Chronic Obstructive Pulmonary Disease Exacerbation, Easy-to- Read, Metered Dose Inhaler With Spacer, CPAP and BIPAP Information Referrals: Lupe Liang MD [Ordering Only Provider] - 12/07/16 10:30 am ([employer] Wafer Inspector follow-up appointment. *Bring the data for your Bipap machine with you to your appointment. There is a data card in your Bipap machine which stores the data and can be removed to bring in to [facility]. Bring the data card or your Bipap machine to [facility] and they will print the data for you to bring to your appoinment.* *Appointment is in Central Standard Time. Breathing tests at 1030, appointment with Dr Liang at 1100.) Lorene Varghese NP [Primary Care Provider] - - Discharge Summary/Plan Comment Discharge Summary/Plan Comment: Patient . Her body will be released to [facility] per family' s request. - General Info Date of Service: 11/06/16 Admission Dx/Problem (Free Text: COPD Exacerbation Subjective Update: Follow Up - Review of Systems Systems Review Comment: Patient . - Patient Data Vitals - Most Recent: Last Vital Signs Temp 36.2 C 11/05/16 22:00 Pulse 80 11/06/16 04:33 Resp 22 H 11/05/16 22:00 BP 138/89 11/05/16 22:00 Pulse Ox 97 11/05/16 22:00 Weight - Most Recent: 60.6 kg I&O - Last 24 hours: Intake & Output 11/05/16 11/05/16 11/06/16 14:59 22:59 06:59 Intake Total 0 1040 400 Output Total 550 Balance 0 1040 -150 Lab Results - Last 24 hrs: Laboratory Results - last 24 hr 11/05/16 11/05/16 Range/Units 06:35 06:35 WBC 12.95 H (3.98-10.04) K/mm3 RBC 4.41 (3.98-5.22) M/mm3 Hgb 13.5 (11.2-15.7) gm/L Hct 45.0 H (34.1-44.9) % MCV 102.0 H (79.4-94.8) fl MCH 30.6 (25.6-32.2) pg MCHC 30.0 L (32.2-35.5) g/dl RDW Std Deviation 51.0 H (36.4-46.3) fL Plt Count 176 L (182-369) K/mm3 MPV 10.1 (9.4-12.3) fl Neut % (Auto) 93.9 H (34.0-71.1) % Lymph % (Auto) 4.4 L (19.3-51.7) % [place] % (Auto) 1.5 L (4.7-12.5) % Eos % (Auto) 0 L (0.7-5.8) Baso % (Auto) 0.0 L (0.1-1.2) % Neut # (Auto) 12.16 H (1.56-6.13) K/mm3 Lymph # (Auto) 0.57 L (1.18-3.74) K/mm3 [place] # (Auto) 0.20 L (0.24-0.36) K/mm3 Eos # (Auto) 0.00 L (0.04-0.36) K/mm3 Baso # (Auto) 0.00 L (0.01-0.08) K/mm3 Manual Slide Review Abnormal smear Sodium 138 (136-145) mEq/L Potassium 4.5 (3.5-5.1) mEq/L Chloride 97 L (98-107) mEq/L Carbon Dioxide 40 H (21-32) mEq/L Anion Gap 5.5 (5-15) BUN 53 H (7-18) mg/dL Creatinine 0.9 (0.55-1.02) mg/dL Est Cr Clr Drug Dosing 36.41 mL/min Estimated GFR (MDRD) > 60 (>60) mL/min BUN/Creatinine Ratio 58.9 H (14-18) Glucose 160 H (83-115) mg/dL Calcium 9.6 (8.5-10.1) mg/dL Magnesium 2.6 H (1.8-2.4) mg/dl Med Orders - Current: Current Medications Acetaminophen (Tylenol) 650 mg PO Q4H PRN PRN Reason: Pain (Mild 1-3)/fever Hydrocodone Bitart/Acetaminophen ([place] 325-5 Mg) 1 tab PO Q4H PRN PRN Reason: Pain (moderate 4-6) Artificial Tears (Isopto Tears 0.5% Ophth Soln) 0 ml EYEBOTH BID [facility] Last Admin: 11/05/16 21:38 Dose: 1 drop Atenolol (Tenormin) 50 mg PO BID [facility] Last Admin: 11/05/16 21:39 Dose: 50 mg Bisacodyl (Dulcolax) 5 mg PO DAILY PRN PRN Reason: Constipation Cholecalciferol (Vitamin D3) 2,000 units PO DAILY [facility] Last Admin: 11/05/16 10:10 Dose: 2,000 units Ezetimibe (Zetia) 10 mg PO BEDTIME [facility] Last Admin: 11/05/16 21:39 Dose: 10 mg Enoxaparin Sodium (Lovenox) 40 mg SUBCUT DAILY [facility] Last Admin: 11/05/16 10:13 Dose: 40 mg Flunisolide (Nasalide Nasal [place]) 0 ml ESTEBAN Q12H [facility] Last Admin: 11/05/16 21:48 Dose: 2 spray Furosemide (Lasix) 20 mg PO DAILY [facility] Last Admin: 11/05/16 10:13 Dose: 20 mg Hydralazine HCl (Apresoline) 20 mg IVPUSH Q4H PRN PRN Reason: Hypertension Last Admin: 11/04/16 12:03 Dose: 20 mg Promethazine HCl 12.5 mg/ (Sodium Chloride) 50.5 mls @ 100 mls/hr IV Q6H PRN PRN Reason: Nausea/Vomiting Lactase (Lactaid Fast Act) 9,000 unit PO QID PRN PRN Reason: LACTOSE INTOLERANCE Last Admin: 11/04/16 14:33 Dose: 9,000 unit Levalbuterol HCl (Xopenex) 1.25 mg NEB Q4H PRN PRN Reason: SOB/WHEEZING Last Admin: 11/06/16 04:33 Dose: 1.25 mg Lorazepam (Ativan) 0.5 mg IV Q6H PRN PRN Reason: Anxiety Last Admin: 11/05/16 22:03 Dose: 0.5 mg Morphine Sulfate (Morphine) 0.25 mg IVPUSH Q6H PRN PRN Reason: Dyspnea Last Admin: 11/05/16 22:02 Dose: 0.25 mg Multivitamins (Thera) 1 each PO DAILY [facility] Last Admin: 11/05/16 10:10 Dose: 1 each Ondansetron HCl (Zofran) 4 mg IV Q6H PRN PRN Reason: Nausea/Vomiting Pantoprazole Sodium (Protonix) 40 mg PO DAILY@0700 [facility] Last Admin: 11/05/16 06:11 Dose: 40 mg Ubidecarenone 100 Mg 0 each PO DAILY [facility] Last Admin: 11/05/16 10:14 Dose: Not Given Denosumab 60 Mg/1 Ml (Syringe (Prolia)) 60 each SUBCUT ASDIRECTED PRN PRN Reason: NEXT DOSE DUE IN JUN Polyethylene Glycol (Miralax) 17 gm PO DAILY PRN PRN Reason: Constipation Saccharomyces Boulardii (Florastor) 250 mg PO DAILY [facility] Last Admin: 11/05/16 10:09 Dose: 250 mg Senna/Docusate Sodium (Senna Plus) 1 tab PO BID PRN PRN Reason: Constipation Sodium Chloride (Saline Flush) 10 ml FLUSH ASDIRECTED PRN PRN Reason: Keep Vein Open Last Admin: 11/03/16 11:45 Dose: 10 ml Temazepam (Restoril) 7.5 mg PO BEDTIME PRN PRN Reason: Sleep Discontinued Medications Albuterol/Ipratropium (Duoneb 3.0-0.5 Mg/3 Ml) 3 ml NEB ONETIME ONE Stop: 11/03/16 10:59 Last Admin: 11/03/16 11:25 Dose: 3 ml Albuterol/Ipratropium (Duoneb 3.0-0.5 Mg/3 Ml) 3 ml NEB ONETIME ONE Stop: 11/03/16 13:02 Last Admin: 11/03/16 13:08 Dose: 3 ml Atenolol (Tenormin) 50 mg PO BEDTIME [facility] Last Admin: 11/03/16 20:39 Dose: 50 mg Furosemide (Lasix) 10 mg IVPUSH NOW ONE Stop: 11/03/16 21:09 Last Admin: 11/03/16 21:54 Dose: Not Given Magnesium Oxide (Magnesium Oxide) 400 mg PO BID [facility] Last Admin: 11/05/16 10:56 Dose: Not Given Methylprednisolone Sodium Succinate (Solu-Medrol) 125 mg IVPUSH ONETIME ONE Stop: 11/03/16 10:59 Last Admin: 11/03/16 11:45 Dose: 125 mg Methylprednisolone Sodium Succinate (Solu-Medrol) 125 mg IVPUSH Q12H [facility] Last Admin: 11/05/16 10:56 Dose: Not Given Morphine Sulfate (Morphine) 0.5 mg IVPUSH ONETIME ONE Stop: 11/03/16 21:10 Last Admin: 11/03/16 23:33 Dose: Not Given Morphine Sulfate (Morphine) 0.25 mg IVPUSH ONETIME ONE Stop: 11/04/16 13:43 Last Admin: 11/04/16 13:59 Dose: Not Given - Exam Physical Findings Comments:: Patient . *Q Meaningful Use (DIS) - VTE *Q VTE Criteria *Q: - Stroke *Q Stroke Criteria *Q: - AMI *Q AMI Criteria *Q:
[2016-11-06 08:19] VITALS: BP 104/65
--- NOTE | 2016-11-06 09:31 | PCM.PN ---
- General Info Date of Service: 11/06/16 Admission Dx/Problem (Free Text): COPD Exacerbation Subjective Update: Follow Up Functional Status: Reports: pain controlled, tolerating diet, ambulating, urinating, new symptoms - Review of Systems General: Reports: Fatigue. Denies: Fever, Chills HEENT: Reports: no symptoms Pulmonary: Reports: shortness of breath Cardiovascular: Reports: No Symptoms Gastrointestinal: Denies: Abdominal pain, Nausea, Vomiting Genitourinary: Reports: no symptoms Musculoskeletal: Reports: no symptoms Skin: Reports: no symptoms Neurological: Reports: Confusion Psychiatric: Denies: depression, anxiety Systems Review Comment:: No overnight issues but this am her O2 sat was extremely low. She is in mild distress at this time. - Patient Data Vitals - most recent: Last Vital Signs Temp 36.8 C 11/06/16 08:18 Pulse 70 11/06/16 08:18 Resp 12 11/06/16 08:18 BP 104/65 11/06/16 08:18 Pulse Ox 92 L 11/06/16 08:18 Weight - most recent: 60.6 kg I&O - last 24 hours: Intake & Output 11/05/16 11/06/16 11/06/16 22:59 06:59 14:59 Intake Total 1040 400 Output Total 550 Balance 1040 -150 Med Orders - Current: Current Medications Acetaminophen (Tylenol) 650 mg PO Q4H PRN PRN Reason: Pain (Mild 1-3)/fever Hydrocodone Bitart/Acetaminophen ([place] 325-5 Mg) 1 tab PO Q4H PRN PRN Reason: Pain (moderate 4-6) Artificial Tears (Isopto Tears 0.5% Ophth Soln) 0 ml EYEBOTH BID [facility] Last Admin: 11/05/16 21:38 Dose: 1 drop Atenolol (Tenormin) 50 mg PO BID [facility] Last Admin: 11/05/16 21:39 Dose: 50 mg Bisacodyl (Dulcolax) 5 mg PO DAILY PRN PRN Reason: Constipation Cholecalciferol (Vitamin D3) 2,000 units PO DAILY [facility] Last Admin: 11/05/16 10:10 Dose: 2,000 units Ezetimibe (Zetia) 10 mg PO BEDTIME [facility] Last Admin: 11/05/16 21:39 Dose: 10 mg Enoxaparin Sodium (Lovenox) 40 mg SUBCUT DAILY [facility] Last Admin: 11/05/16 10:13 Dose: 40 mg Flunisolide (Nasalide Nasal [place]) 0 ml ESTEBAN Q12H [facility] Last Admin: 11/05/16 21:48 Dose: 2 spray Furosemide (Lasix) 20 mg PO DAILY [facility] Last Admin: 11/05/16 10:13 Dose: 20 mg Hydralazine HCl (Apresoline) 20 mg IVPUSH Q4H PRN PRN Reason: Hypertension Last Admin: 11/04/16 12:03 Dose: 20 mg Promethazine HCl 12.5 mg/ (Sodium Chloride) 50.5 mls @ 100 mls/hr IV Q6H PRN PRN Reason: Nausea/Vomiting Lactase (Lactaid Fast Act) 9,000 unit PO QID PRN PRN Reason: LACTOSE INTOLERANCE Last Admin: 11/04/16 14:33 Dose: 9,000 unit Levalbuterol HCl (Xopenex) 1.25 mg NEB Q4H PRN PRN Reason: SOB/WHEEZING Last Admin: 11/06/16 04:33 Dose: 1.25 mg Lorazepam (Ativan) 0.5 mg IV Q6H PRN PRN Reason: Anxiety Last Admin: 11/05/16 22:03 Dose: 0.5 mg Morphine Sulfate (Morphine) 0.25 mg IVPUSH Q6H PRN PRN Reason: Dyspnea Last Admin: 11/05/16 22:02 Dose: 0.25 mg Multivitamins (Thera) 1 each PO DAILY [facility] Last Admin: 11/05/16 10:10 Dose: 1 each Ondansetron HCl (Zofran) 4 mg IV Q6H PRN PRN Reason: Nausea/Vomiting Pantoprazole Sodium (Protonix) 40 mg PO DAILY@0700 [facility] Last Admin: 11/06/16 06:59 Dose: 40 mg Ubidecarenone 100 Mg 0 each PO DAILY [facility] Last Admin: 11/05/16 10:14 Dose: Not Given Denosumab 60 Mg/1 Ml (Syringe (Prolia)) 60 each SUBCUT ASDIRECTED PRN PRN Reason: NEXT DOSE DUE IN JUN Polyethylene Glycol (Miralax) 17 gm PO DAILY PRN PRN Reason: Constipation Saccharomyces Boulardii (Florastor) 250 mg PO DAILY [facility] Last Admin: 11/05/16 10:09 Dose: 250 mg Senna/Docusate Sodium (Senna Plus) 1 tab PO BID PRN PRN Reason: Constipation Sodium Chloride (Saline Flush) 10 ml FLUSH ASDIRECTED PRN PRN Reason: Keep Vein Open Last Admin: 11/03/16 11:45 Dose: 10 ml Temazepam (Restoril) 7.5 mg PO BEDTIME PRN PRN Reason: Sleep Discontinued Medications Albuterol/Ipratropium (Duoneb 3.0-0.5 Mg/3 Ml) 3 ml NEB ONETIME ONE Stop: 11/03/16 10:59 Last Admin: 11/03/16 11:25 Dose: 3 ml Albuterol/Ipratropium (Duoneb 3.0-0.5 Mg/3 Ml) 3 ml NEB ONETIME ONE Stop: 11/03/16 13:02 Last Admin: 11/03/16 13:08 Dose: 3 ml Atenolol (Tenormin) 50 mg PO BEDTIME [facility] Last Admin: 11/03/16 20:39 Dose: 50 mg Furosemide (Lasix) 10 mg IVPUSH NOW ONE Stop: 11/03/16 21:09 Last Admin: 11/03/16 21:54 Dose: Not Given Magnesium Oxide (Magnesium Oxide) 400 mg PO BID [facility] Last Admin: 11/05/16 10:56 Dose: Not Given Methylprednisolone Sodium Succinate (Solu-Medrol) 125 mg IVPUSH ONETIME ONE Stop: 11/03/16 10:59 Last Admin: 11/03/16 11:45 Dose: 125 mg Methylprednisolone Sodium Succinate (Solu-Medrol) 125 mg IVPUSH Q12H [facility] Last Admin: 11/05/16 10:56 Dose: Not Given Morphine Sulfate (Morphine) 0.5 mg IVPUSH ONETIME ONE Stop: 11/03/16 21:10 Last Admin: 11/03/16 23:33 Dose: Not Given Morphine Sulfate (Morphine) 0.25 mg IVPUSH ONETIME ONE Stop: 11/04/16 13:43 Last Admin: 11/04/16 13:59 Dose: Not Given - Exam Quality Assessment: supplemental oxygen General: alert, oriented, cooperative, mild distress, other (Severe Scoliosis) HEENT: Pupils equal, Pupils reactive, EOMI, Mucous membr. moist/pink Neck: supple, trachea midline, no JVD, no thyromegaly Lungs: Decreased breath sounds. No: Normal respiratory effort Cardiovascular: Regular Rate, Regular Rhythm Abdomen: bowel sounds present, soft, no tenderness, no distension (Female) Exam: Deferred Back Exam: Normal Inspection, Decreased Range of Motion Extremities: normal pulses, no tenderness/swelling, edema. No: no cyanosis Peripheral Pulses: 2+: Dorsalis Pedis (L), Dorsalis Pedis (R) Skin: warm, dry, intact Neurological: no new focal deficit Psy/Mental Status: alert, anxious - Problem List & Annotations (1) Respiratory failure with hypercapnia SNOMED Code(s): 950721532 Code(s): J96.92 - RESPIRATORY FAILURE, UNSPECIFIED WITH HYPERCAPNIA Status : Acute Current Visit: Yes (2) Scoliosis deformity of spine SNOMED Code(s): 948735717 Code(s): M41.9 - SCOLIOSIS, UNSPECIFIED Status: Chronic Current Visit: Yes Qualifiers: Scoliosis type: unspecified scoliosis Spinal region: cervicothoracic Qualified Code(s): M41.9 - Scoliosis, unspecified (3) History of chronic carbon dioxide retention SNOMED Code(s): 287308506 Code(s): WPJ2537 - Status: Acute Current Visit: Yes (4) COPD exacerbation SNOMED Code(s): 791346816, 416066182 Code(s): J44.1 - CHRONIC OBSTRUCTIVE PULMONARY DISEASE W (ACUTE) EXACERBATION Status: Resolved Current Visit: Yes (5) ISHMAEL treated with BiPAP SNOMED Code(s): 94060417 Code(s): G47.33 - OBSTRUCTIVE SLEEP APNEA (ADULT) (PEDIATRIC) Status: Chronic Current Visit: Yes - Problem List Review Problem List Initiated/Reviewed/Updated: Yes - My Orders Last 24 Hours: My Active Orders 11/06/16 08:31 Ready for Discharge [RC] PER UNIT ROUTINE 11/06/16 09:22 RT Arterial Blood Gases, ABG [RC] Click To Edit 11/06/16 09:25 BLOOD GAS ARTERIAL [BG] Urgent - Plan Plan:: Assessment/Plan: Acute: Acute Hypercapneic Respiratory Failure - Risk Factors: Restrictive Lung Disease, COPD, Advanced Scoliosis and ISHMAEL - Was on 3L NC, will switch back to BIPAP Acute On Chronic CO2 Retainer, pCO2 98 on ABG (Acidotic) - 2/2 above - CO2 40 ---> 38 ---> 40 (her supplemental O2 was cut down to 2L) - Continue supplemental O2 and NIPPV COPD - 2/2 Restrictive Lung Disease from Severe and likely Worsening Scoliosis - Supplemental O2, Bronchodilators, RT care, oral Magnesium BID - Discontinue oral Magnesium Leukocytosis - 2/2 IV Steroid - Will stop steroid - No lab this am Hypermagnesemia - Mg 2.6 - Discontinue oral Magnesium Oxide - No lab this am Severe Scoliosis - Likely worsening - Patient was seen in [facility] 10-15 years ago for evaluation of her Scoliosis. At that time, she was offered no alternative option. She is currently being followed by skein straightener but she has not been referred to a surgical lead that could help her surgically. - Patient is aware we do not have a whole lot to offer here in [place]. At the same time, she would not meet transfer criteria as she is not any worse than here baseline. She was offered ativan and morphine last night but this time she agreed to take it. - Informed patient, she may need to be re-evaluated with declining functional status. Chronic: HTN ISHMAEL on NIPPV COPD/Asthma Severe Scoliosis GERD Peripheral Edema Vit D Deficiency Osteoporosis Hx/o CAD/HLD Hx/o HF with unknown EF (likely Diastolic) Hx/o Tachycardia Plan: She is unstable respiratory diego this am Will call her sisters immediately Routine AM Labs Continue PT/OT/RT SW/CM for d/c planning Encourage to use PRN ativan and morphine for symptomatic control Code status: CPR only Hold d/c orders Poor-Grim prognosis with worsening respiratory status
--- NOTE | 2016-11-06 09:33 | PCM.SN ---
- Free Text/Narrative Note: Her O2 sat is in the 60s this am. She is not however in any acute distress. Will increased O2 and stat ABG. She may need to go back on BIPAP. Hold off on discharge orders.
[2016-11-06] MEDS: Morphine 2 MG/ML Syringe IVPUSH PRN ×3 (09:50→17:28)
[2016-11-06] MEDS: Hypromellose 0.5% Ophth Soln 15 ML Bottle EYEBOTH SCH (11:43)
[2016-11-06] MEDS: Saccharomyces Boulardii (Probiotic) 250 MG Cap PO SCH (11:43)
[2016-11-06] MEDS: Enoxaparin 40 MG/0.4 ML Syringe SUBCUT SCH (11:44)
[2016-11-06] MEDS: Atenolol 25 MG Tab PO SCH (11:44)
[2016-11-06] MEDS: Furosemide 20 MG Tab PO SCH (11:44)
[2016-11-06] MEDS: Multivitamins,Therapeutic Tab PO SCH (11:45)
[2016-11-06] MEDS: Cholecalciferol (Vitamin D3) 1,000 Unit Tab PO SCH (11:45)
[2016-11-06] MEDS: Lactase 9,000 Unit Tab PO PRN (17:27)
[2016-11-06] MEDS: LORazepam 2 MG/ML MDV IV PRN (17:27)
[2016-11-06] MEDS ORDERED: Morphine 2 MG/ML Syringe IVPUSH PRN (19:42)
[2016-11-06] MEDS ORDERED: LORazepam 2 MG/ML MDV IV PRN (19:43)
== END 2016-11-06 18:53 | disposition expired | DRG 189 ==
LOC: JD.ED 10:28 → JD.MS 14:26 → UNDOADMIN 14:26 → JD.MS 15:16 → UNDODISIN 11-06 18:53
PROVIDERS: ADMIT Internal Medicine; ATTEND Internal Medicine
DX: J96.22 Acute and chronic respiratory failure with hypercapnia (principal); J44.1 Chronic obstructive pulmonary disease with (acute) exacerbation; G47.33 Obstructive sleep apnea (adult) (pediatric); Z51.5 Encounter for palliative care; I25.10 Atherosclerotic heart disease of native coronary artery without angina pectoris; M41.9 Scoliosis, unspecified; Z99.81 Dependence on supplemental oxygen; I50.9 Heart failure, unspecified; I11.0 Hypertensive heart disease with heart failure
CPT/HCPCS: 36415; 71010; 80053; 83880; 84484; 85025; 93005; 94640; 94664; 96374; 99285; J2930; J7050; 36600; 80048; 82803; 83735; 94761; 97110-GO; 97110-GP; 97116-GP; 97162-GP; 97167-GO; 97530-GO; 97535-GO; 99222; 99232; 99238; 99284; A9270-GY; J0360; J1650; J2060; J2270